=== PATIENT | female | born 1970 | race Caucasian/White ===

== ENCOUNTER → 2020-10-07 17:21 | Outpatient (BNVA) | payer BC, SELFPAY | PROVIDERS: PCP Family Medicine; Visit Provider Family Medicine | DX: E03.9 Hypothyroidism, unspecified (principal) | CPT/HCPCS: 80053; 80061; 84443; 85025 ==

== ENCOUNTER 2020-11-03 13:45 | Outpatient (CLI) | payer BC, SELFPAY ==
--- NOTE | 2020-11-03 14:30 | MM_ITS ---
WS: [id number] BILATERAL DIGITAL SCREENING MAMMOGRAPHY WITH CAD CLINICAL INFORMATION: Z12.31 - Encounter for screening mammogram for malignant neoplasm of breast HISTORY: Screening mammogram. No current complaints. COMPARISON: and TECHNIQUE: Bilateral CC and MLO views. FINDINGS: Scattered fibroglandular densities bilaterally. No suspicious focal mass, asymmetry, calcifications, or architectural distortion. No evidence of malignancy. Punctate and lucent centered calcifications. MM/[place] [address] IMPRESSION: BI-RADS: 2-Benign FOLLOW UP: 1 Year Follow-up Recommend return to annual screening mammography.
== END 2020-11-03 13:46 | disposition home or self-care (01) ==
LOC: RADSHAW 13:49
PROVIDERS: PCP Family Medicine; Visit Provider Family Medicine
DX: Z12.31 Encounter for screening mammogram for malignant neoplasm of breast (principal)
CPT/HCPCS: 77067

== ENCOUNTER → 2020-12-06 16:07 | Outpatient (BNVA) | payer BC, SELFPAY | PROVIDERS: PCP Family Medicine; Visit Provider Obstetrics & Gynecology | DX: N93.9 Abnormal uterine and vaginal bleeding, unspecified (principal); R10.2 Pelvic and perineal pain; N92.6 Irregular menstruation, unspecified | CPT/HCPCS: 83001; 84146; 84443; 84702; 88305 ==

== ENCOUNTER → 2020-12-08 14:29 | Outpatient (BNVA) | payer BC, SELFPAY | PROVIDERS: PCP Family Medicine; Visit Provider Obstetrics & Gynecology | DX: N93.9 Abnormal uterine and vaginal bleeding, unspecified (principal); N85.2 Hypertrophy of uterus; D25.1 Intramural leiomyoma of uterus | CPT/HCPCS: 76830 ==

== ENCOUNTER → 2021-01-26 16:12 | Outpatient (BNVA) | payer BC, SELFPAY | PROVIDERS: PCP Family Medicine; Visit Provider Family Medicine | DX: E03.9 Hypothyroidism, unspecified (principal) | CPT/HCPCS: 84443 ==

== ENCOUNTER → 2021-02-04 15:06 | Outpatient (BNVA) | payer BC, SELFPAY | PROVIDERS: PCP Family Medicine; Visit Provider Obstetrics & Gynecology | DX: N84.1 Polyp of cervix uteri (principal); N93.9 Abnormal uterine and vaginal bleeding, unspecified; Z20.822 Contact with and (suspected) exposure to COVID-19 | CPT/HCPCS: 87635 ==

== ENCOUNTER → 2021-02-24 16:37 | Outpatient (BNVA) | payer BC, SELFPAY | PROVIDERS: PCP Family Medicine; Visit Provider Obstetrics & Gynecology | DX: Z20.822 Contact with and (suspected) exposure to COVID-19 (principal); N93.9 Abnormal uterine and vaginal bleeding, unspecified | CPT/HCPCS: 87635 ==

== ENCOUNTER 2021-03-02 15:11 | Inpatient (IN) | payer BC, SELFPAY ==
[2021-03-01 09:12] VITALS: BMI 51.0
--- NOTE | 2021-03-01 10:01 | ANES.PREANE2 ---
Pre-Anesthetic Assessment Pre-Anesthetic Assessment: Height/Weight: Height 1.63 m Weight 134.717 kg Proposed Procedure: Operation Date: 03/02/21 12:20 Proposed Procedures p Laparoscopic Assist Vaginal Hysterectomy 04796 N93.9 N84.1(Not Applicable) - Abel Gloria MD Was Beta Jayla taken within 24 hours: N/A Was Clonidine taken within 24 hours: N/A Social: Social History: No alcohol and No tobacco Exam: Pre-Anes Outpt Exam: alert and oriented x 3 Airway: Submandibular: WNL Cervical ROM: WNL MP: 2 Additional comments: Morbid obesity History/ROS: No significant history except as noted Pulmonary: Pulmonary: None reported CV/HEM: CV/HEM: None reported : : None reported Hepatic: Hepatic: None reported GI: GI: None reported Metabolic: Metabolic: Thyroid Musc/skel: Musc/skel: None reported Neuropsych: Neuropsych: None reported Anesthetic Plan: ASA status: 2 Anesthesia: Anesthesia Evaluation and General PFSH Anesthesia PFSH: Medical History Abnormal uterine bleeding (AUB) Hypothyroidism Surgical History H/O section x2 History of weight loss surgery S/P endometrial ablation S/P tonsillectomy and adenoidectomy Family History Mother Diabetes Hypertension Lupus Uterine cancer Denies family history of Colon cancer Ovarian cancer Clotting disorder Heart disease Hyperlipidemia Breast cancer Anesthesia complication Bleeding disorder Thyroid condition Stroke Social History Smoking and tobacco status: never smoked Alcohol intake: current Alcohol intake frequency: holidays/special occasions only Alcohol type: hard liquor Female Reproductive History: Date of last menstrual period: 02/25/21 Data Anesthesia Cardiac Studies: No Data to Display
[2021-03-02] VITALS (17 sets, daily range): BP systolic 97–181; BP diastolic 64–100; PULSE 74–85; RESP 12–20; TEMP 36.4–36.5; O2SAT 91–100; BMI 51.0
[2021-03-02] MEDS: sodium chloride 0.9% 1,000 ML 30 ML IV (12:00)
[2021-03-02] MEDS: enoxaparin 30 mg/0.3 mL Syringe SUBCUT (12:25)
[2021-03-02] MEDS: sodium chloride 0.9% 500 ML IV (12:25)
[2021-03-02 13:02] LABS: Add Urine Microscopic? NO; Charge for UA Resulting for Rev
[2021-03-02 13:08] LABS: Bilirubin Urine Neg (Negative); Blood Urine Neg (Negative); Glucose Urine UA Norm (Normal); Ketones Urine Negative (Negative); Leukocyte Esterase Urine Negative (Negative); Nitrate Urine Negative (Negative); Protein Urine Neg (Negative); Urine Appearance Clear (CLEAR); Urine Color Yellow (Yellow); Urobilinogen Urine Norm (Negative); pH Urine 6 (5-7)
[2021-03-02 13:13] LABS: Basophils # 0.1 10^3/uL (0.0-0.1); Basophils % 1.3 %; Eosinophils # 0.1 10^3/uL (0.0-0.8); Eosinophils % 1.8 %; Hematocrit 44.2 % (37.0-47.0); Hemoglobin 14.7 g/dL (11.5-15.3); Lymphocytes # 2.1 10^3/uL (0.8-4.8); Lymphocytes % 31.4 %; Mean Corpuscular HGB Conc 33.3 g/dL (30.0-36.0); Mean Corpuscular Hemoglobin 30.1 pg (28.0-34.0); Mean Corpuscular Volume 90.6 fl (81-99); Mean Platelet Volume 11.2 fL (7.4-10.4); Monocytes # 0.5 10^3/uL (0.2-0.9); Monocytes % 7.5 %; Neutrophils # 3.95 10^3/uL (1.8-7.7); Neutrophils % 57.9 %; Nucleated Red Blood Cells % 0 %; Platelet Count 274 10^3/cmm (130-400); Red Blood Count 4.88 10^6/uL (4.1-5.3); Red Cell Distribution Width 13.3 % (12.1-15.1); White Blood Count 6.8 10^3/uL (4.0-10.0)
[2021-03-02 13:16] LABS: OR HCG Qualitative Urine Negative (Negative)
[2021-03-02 13:34] LABS: Alanine Aminotransferase 17 U/L (0-33); Albumin Level 4.2 g/dL (3.5-5.2); Alkaline Phosphatase 95 IU/L (35-105); Anion Gap 12.8 (5-19); Aspartate Amino Transferase 24 U/L (0-32); Blood Urea Nitrogen 9 mg/dL (6-20); Calcium 9.3 mg/dL (8.5-10.5); Carbon Dioxide 27 mmol/L (22-29); Chloride 101 mmol/L (98-107); Globulin 3.3 g/dL (1.3-4.6); Glomerular Filtration Rate 129.6 mL/min (90-130); Glucose 116 mg/dL (65-115); Osmolality Calculated 284 mOsm/kg (285-295); Potassium 3.8 mmol/L (3.5-5.1); Sodium 137 mmol/L (136-145); Total Bilirubin 0.5 mg/dL (0.15-1.2); Total Protein 7.5 g/dL (6.6-8.7)
--- NOTE | 2021-03-02 14:25 | W.PM.OPSUD ---
Surgery/Procedure H&P Update DATE OF PROCEDURE: March 02, 2021 DATE H&P PERFORMED: 03/01/21 H&P UPDATE INFORMATION: I have reviewed H&P completed within last 30 days, I have examined patient prior to procedure and No changes to prior documentation PREOP DIAGNOSIS: Abnormal uterine bleeding, endocervical polyp, PLANNED PROCEDURE: Operation Date: 03/02/21 13:05 Proposed Procedures p Laparoscopic Assist Vaginal Hysterectomy 79325 N93.9 N84.1(Not Applicable) - Abel Gloria MD
--- NOTE | 2021-03-02 14:30 | P.ANESUD_ITS ---
Pre-Anesthetic Update Pre-Anesthetic Assessment: Date of Surgery/Procedure: 03/02/21 Preop Kimmy gnosis: Abnormal uterine bleeding, endocervical polyp, Proposed Procedure: Operation Date: 03/02/21 13:05 Proposed Procedures p Laparoscopic Assist Vaginal Hysterectomy 40154 N93.9 N84.1(Not Applicable) - Abel Gloria MD Any changes to Pre-Anesthetic Assessment?: No Last Intake: Intake Last Liquid Date 03/01/21 Last Liquid Time 20:00 Last Solid Date 03/01/21 Last Solid Time 20:00 Labs Last 48hrs: Laboratory Results - last 48 hr 03/02/21 03/02/21 03/02/21 12:14 12:14 12:14 WBC 6.8 RBC 4.88 Hgb 14.7 Hct 44.2 MCV 90.6 MCH 30.1 MCHC 33.3 RDW 13.3 Plt Count 274 MPV 11.2 H Neut % (Auto) 57.9 Lymph % (Auto) 31.4 [place] % (Auto) 7.5 Eos % (Auto) 1.8 Baso % (Auto) 1.3 Neut # (Auto) 3.95 Lymph # (Auto) 2.1 [place] # (Auto) 0.5 Eos # (Auto) 0.1 Baso # (Auto) 0.1 Nucleated RBC % (a uto) 0 Nucleated RBCs # 0.0 Sodium Potassium Chloride Carbon Dioxide Anion Gap BUN Creatinine GFR Calculation Glucose Calculated Osmolal ity Calcium Total Bilirubin AST ALT Alkaline Phosphata se Total Protein Albumin Globulin Urine Color Yellow Urine Appearance Clear Urine pH 6 Ur Specific Gravit y 1.020 Urine Protein Neg Urine Glucose (UA) Norm Urine Ketones Negative Urine Blood Neg Urine Nitrate Negative Urine Bilirubin Neg Urine Urobilinogen Norm Ur Leukocyte Gisselle ase Negative Urine HCG, Qual Negative Blood Type Rho(D) Type Antibody Screen 03/02/21 03/02/21 12:14 12:14 WBC RBC Hgb Hct MCV MCH MCHC RDW Plt Count MPV Neut % (Auto) Lymph % (Auto) [place] % (Auto) Eos % (Auto) Baso % (Auto) Neut # (Auto) Lymph # (Auto) [place] # (Auto) Eos # (Auto) Baso # (Auto) Nucleated RBC % (a uto) Nucleated RBCs # Sodium 137 Potassium 3.8 Chloride 101 Carbon Dioxide 27 Anion Gap 12.8 BUN 9 Creatinine 0.5 GFR Calculation 129.6 Glucose 116 H Calculated Osmolal ity 284 L Calcium 9.3 Total Bilirubin 0.5 AST 24 ALT 17 Alkaline Phosphata se 95 Total Protein 7.5 Albumin 4.2 Globulin 3.3 Urine Color Urine Appearance Urine pH Ur Specific Gravit y Urine Protein Urine Glucose (UA) Urine Ketones Urine Blood Urine Nitrate Urine Bilirubin Urine Urobilinogen Ur Leukocyte Gisselle ase Urine HCG, Qual Blood Type O Positive Rho(D) Type Positive Antibody Screen Negative Vitals: Temperature 97.7 F 03/02/21 11:55 Temperature Source Temporal Artery S can 03/02/21 11:55 Pulse Rate 74 03/02/21 11:55 Pulse Rhythm 03/02/21 11:50 Respiratory Rate 18 03/02/21 11:55 Blood Pressure 147/88 03/02/21 11:55 Blood Pressure Olga n 107 03/02/21 11:55 Pulse Oximetry 98 03/02/21 11:55 Oxygen Delivery Me thod 03/02/21 11:55 Exam: Pre-Anes Outpt Exam: alert, oriented x 3, clear to auscultation bilaterally and regular rate & rhythm Cardiac Studies: No Data to Display
[2021-03-02] MEDS: levofloxacin-dextrose 5 % 500 MG/100 ML PREMIX 100 MG IV (14:36)
--- NOTE | 2021-03-02 17:47 | P.OP_ITS ---
Operative Report Date of procedure: March 02, 2021 Pre-op Diagnosis: Abnormal uterine bleeding, endocervical polyp, Post-op diagnosis: same Post-op Findings: Enlarged irregular uterus adherent to anterior abdominal wall Procedure Done: Laparoscopic-assisted vaginal hysterectomy converted to open total abdominal hysterectomy Specimens removed/disposition: Uterus Surgeon: Abel Gloria MD Anesthesia: General Estimated blood loss (mL): 500 IV fluids (mL): 1,400 Urine output (mL): 500 Findings: Enlarged irregular uterus with extensive adhesions to anterior abdominal wall Condition: stable Disposition: PACU Procedure: After informed consent, the patient was taken to the operating room where general anesthesia was administered. Pre-Procedure Time-Out verifying the correct patient identity, correct procedure verified with consent, correct site and side, correct patient position, availability of correct implants and any special equipment or requirements was performed and acknowledge by the OR team. She was placed in the dorsal lithotomy position and prepped and draped in sterile fashion. The patient was examined under anesthesia and found to have a normal uterus with normal adnexa. A Garcia catheter was placed in the bladder. A weighted speculum was placed in the vagina, and the anterior lip of cervix was grasped with the single toothed tenaculum. A uterine manipulator was advanced into the endocervical. Tenaculum was removed after uterine manipulator was secured. The speculum was removed from the vagina. The attention was brought to abdomen after changing gloves. The base of the umbilicus was grasped with an Allis clamp and with 2 towel clamp bilaterally tenting up the umbilicus an intraumbilical incision was made with a scalpel. While tenting up on the abdomen, a Verres needle with sleeve was admitted into the intra-abdominal cavity. A saline drop test was performed and noted to be within normal limits. Pneumoperitoneum was attained with 4 liters of carbon dioxide. The Verres needle was removed. Then a 5 mm Optiview trocar and cannula were inserted under direct visualization without complications. Trocars were removed and the laparoscope was inserted and connected to the video camera light source. Abdominal cavity assessment show an irregular enlarged uterus distorting anatomy with severe adhesions to anterior abdominal wall and left side of the pelvis. At this time the decision was made to proceed with an open total abdominal hysterectomy. Subsequently, a Pfannenstiel incision was made and the incision was taken down to the fascia. The fascia was opened up sharply. The fascia was extended to the length of the incision using the Bach scissors. At this time, the rectus muscles were dissected from the fascia superiorly and inferiorly to the symphysis pubis. The midline rectus muscles were opened sharply and extended superiorly and inferiorly. The peritoneum was visualized, grasped, opened sharply, and extended superiorly and inferiorly towards the bladder. Extensive adhesion were lysed to separate the uterus from anterior abdominal wall. The abdominal contents were packed superiorly away from the operative site using the lap packs. At this time, the pelvic organs were noted. The inferior and superior blades were placed in place on the Tino self-retaining retractor. Bowel was packed away from the operative site. The fundus of the uterus was then grasped with a triple-tooth tenaculum and retracted out of the pelvic cavity into the abdominal site. At this point, Lorena clamps were placed in both right and left adnexal regions. Subsequently, using the ENseal cautery unit, the round ligaments were grasped, cauterized, and dissected. The bladder flap was then formed and the bladder flap was pushed away down anteriorly over the lower uterine segment, pushed away from the operative site on both the right and left sides. Subsequently, the posterior leaf of the broad ligament was opened sharply and the Enseal instrument was then placed below the level of the ovary in both the right and left side, care being taken not to damage bowel or uterus and the infundibulopelvic ligament was then grasped, cauterized, and again dissected. Further dissection of the broad ligament was carried down posteriorly towards the uterine vessels. The bladder was pushed inferiorly down towards the vagina. Subsequently, the uterine vessels were then grasped again with the Enseal machine, cauterized, and dissected. The cardinal ligaments were further grasped, dissected, and suture ligated, again with the Enseal machine. At that point, the Enseal machine instrument was stopped and straight Zeppelin clamps were used on the cardinal ligaments down towards the uterosacral ligaments. The cardinal ligaments were grasped, dissected with a scalpel and then ligated with transfixion sutures with #1 Vicr yl suture down to the uterosacral ligaments. The uterosacral ligaments were grasped, dissected, and suture ligated again with #1 Vicryl suture and transfixion sutures. At that time, the bladder had been pushed over the vagina and at this time right-angle Zeppelin clamps were placed on the vagina at the level of the cervix, and using the Larry scissors, the cervix was dissected away from the vagina. At this time, the vaginal cuff was then closed using interrupted sutures of #1 Vicryl suture from the midline to each lateral corner. After the good hemostasis had been achieved in the vaginal cuff, both the right and left adnexa was visualized and no more bleeding was noted. The cuff was intact with no bleeding noted. The bladder was visualized and no bleeding was noted. Seprafilm was then placed over the vaginal cuff. The Lutts self- retaining retractor was removed as well as the anterior and inferior blades. The lap packs were removed, and at this time, general closure of the abdomen was carried out. The peritoneum was closed with a 2-0 Vicryl suture and continuous running suture. The fascia was closed using a #1 Vicryl suture from each corner to the midline. Subcutaneous tissue was cauterized. No bleeding was noted. The subcutaneous tissue was then reapproximated using plain sutures and interrupted sutures, and the skin was closed using the Insorbs subcuticular absorvable st aples. The patient tolerated the procedure well and was transferred to the recovery room in excellent condition. The patient returned to the floor for recovery.
[2021-03-02] MEDS: ondansetron 2 mg/ML SDV 2 mL 4 MG IVP (18:09)
[2021-03-02] MEDS: fentaNYL 50 mcg/mL INJ 2mL IVP (18:11)
--- NOTE | 2021-03-02 18:37 | SUR.PHASEI ---
Pt resting quietly, dozes off to sleep easily, but arouses to verbal command. VSS. States pain is better following the Fentanyl. Denies further N/V. Garcia patent, draining clear, blue-tinged urine. Dressing to lower transverse abdomen dry and intact. Report called to Heidy in OB.
--- NOTE | 2021-03-02 19:00 | ANE.PACU2 ---
Inpatient post-anesthesia follow up: Airway intact: Yes Vital signs: Temperature 98.0 F Pulse Rate 96 Respiratory Rate 18 Blood Pressure 134/83 Pulse Oximetry 99 Oxygen Delivery Me thod Room Air Oxygen Flow Rate 2 Fraction of Inspir ed Oxygen Hydration adequate: Yes Nausea and vomiting: No Pain level: 3 Mental status: Baseline
[2021-03-02] MEDS: ketorolac 30 mg/mL INJ IVP (20:37)
[2021-03-02] MEDS: HYDROcodone-acetaminophen 5-325 mg Tablet PO (21:13)
[2021-03-02] MEDS: dextrose 5%-lactated ringers 1,000 ML 125 ML IV (21:21)
[2021-03-03 00:04] VITALS: BP 152/89; PULSE 78; TEMP 36.7
[2021-03-03 02:04] VITALS: BP 147/86; PULSE 82; RESP 18
[2021-03-03] MEDS: ketorolac 30 mg/mL INJ IVP (02:44)
[2021-03-03] MEDS: HYDROcodone-acetaminophen 5-325 mg Tablet PO ×2 (02:45→20:26)
[2021-03-03 03:59] VITALS: BP 134/83; PULSE 96; RESP 18; O2SAT 99
[2021-03-03] MEDS: dextrose 5%-lactated ringers 1,000 ML 125 ML IV (05:01)
[2021-03-03 05:57] LABS: Hematocrit 37.4 % (37.0-47.0); Hemoglobin 12.4 g/dL (11.5-15.3); Mean Corpuscular HGB Conc 33.2 g/dL (30.0-36.0); Mean Corpuscular Hemoglobin 30.2 pg (28.0-34.0); Mean Platelet Volume 10.8 fL (7.4-10.4); Platelet Count 252 10^3/cmm (130-400); Red Blood Count 4.11 10^6/uL (4.1-5.3); Red Cell Distribution Width 13.2 % (12.1-15.1); White Blood Count 14.7 10^3/uL (4.0-10.0)
--- NOTE | 2021-03-03 08:42 | PM.PN ---
Subjective Subjective: Interval history: Mrs. Newsome post LAVH converted to abdominal hysterectomy day 1. Referred pain under control. Deny nausea and tolerating diet. Referred pain scale 2/10. Vitals/I&O/Wt Last Vital Signs Temp 98.0 F 03/03/21 00:04 Pulse 96 03/03/21 03:59 Resp 18 03/03/21 03:59 BP 134/83 03/03/21 03:59 Pulse Ox 99 03/03/21 03:59 03/02/21 03/03/21 03/03/21 22:59 06:59 14:59 Intake Total 2500 / 3000 958.333 / 3958.333 312.5 / 312.5 Output Total 2650 / 2650 850 / 3500 Balance -150 / 350 108.333 / 458.333 312.5 / 312.5 Weight last 48 hrs Weight 134.717 kg Weight 134.717 kg Weight 134.717 kg Physical Exam Narrative: EXAM NARRATIVE: GA: Alert and oriented ?3. HEENT: WNL. Heart: Regular rate and rhythm. Lungs: Clear to auscultation bilaterally. Abdomen: Bowel sounds present, nontender, minimal tenderness, incision clean and dry, no redness, pain or edema. SLEEVE SETTER SAFETY STITCH: No bleeding. Extremities: No edema, no cyanosis, no calves pain. Urinary Catheter Management^: Garcia: Cath Placed During This Visit: yes, but has since been removed by the nurse Reason for Continuing Indwelling Catheter: Decision to DC Catheter Urinary Catheter Date of Insertion: 03/02/21 Urinary Catheter Time of Insertion: 15:05 Date Urinary Catheter Removed: 03/03/21 Time Urinary Catheter Discontinued: 05:20 Data : 03/03/21 04:20 03/02/21 12:14 A&P Assessment and plan (1) Status post abdominal hysterectomy: Mrs. Newsome 50-year-old female status post total abdominal hysterectomy and lysis of adhesions postoperative day 1. She is afebrile and hemodynamically stable. Tolerating diet well. Ambulating without difficulty. Status: Acute Attestations Medical Necessity Statement*: In my professional opinion per admitting diagnosis. Coding Level of Care Code Acute Hunter Skin Diver for g Fwd Diagnoses Status post abdominal hysterectomy Z90.710
[2021-03-03] MEDS: ibuprofen 800 mg tablet PO ×2 (08:48→16:23)
[2021-03-03] MEDS: docusate sodium 100 mg Capsule PO (08:48)
[2021-03-03] MEDS: thyroid 60 mg Tablet PO (08:49)
[2021-03-03 08:50] VITALS: BP 108/61; PULSE 81; RESP 16; TEMP 36.7
[2021-03-03 16:15] VITALS: BP 121/67; PULSE 81; RESP 16; TEMP 36.7
[2021-03-03 22:00] VITALS: BP 109/70; PULSE 59; RESP 16; TEMP 37.2
[2021-03-04 04:00] VITALS: BP 107/67; PULSE 53; RESP 16
[2021-03-04] MEDS: ibuprofen 800 mg tablet PO ×2 (04:05→11:53)
[2021-03-04] MEDS: HYDROcodone-acetaminophen 5-325 mg Tablet PO (07:34)
[2021-03-04] MEDS: thyroid 60 mg Tablet PO (09:42)
[2021-03-04 10:36] VITALS: BP 108/68; PULSE 56; RESP 16; TEMP 37; O2SAT 96
--- NOTE | 2021-03-04 13:22 | P.DS_ITS ---
Discharge Providers DIRECTOR PROFESSIONAL SERVICES Date of Admission: 03/02/21 15:11 Date of Discharge: 03/04/21 Attending Provider at Admission: Abel Gloria MD Attending Provider at Discharge: Abel Gloria MD Primary Care Provider: Belem Awad MD Diagnoses at Discharge Discharge Diagnosis (1) Status post abdominal hysterectomy: Status: Acute Reason for Visit Reason for Visit: Abnormal uterine bleeding, endocervical polyp Hospital Course Hospital Course Mrs. Ferrer 50-year-old female with a history of abnormal uterine bleeding endocervical endometrial polyp. Admitted for planned laparoscopic-assisted vaginal hysterectomy. Procedure was started as planned but it was converted to an open total abdominal hysterectomy due to uterine size and multiple dense adhesions from previous surgery. Postop observation was uneventful. Tolerating diet well. Ambulating without difficulty. Urine output within normal limits. Had a Bowel movement. She is postoperative day 2 afebrile and hemodynamically stable. Physical Exam Narrative: EXAM NARRATIVE: GA: Alert and oriented ?3. HEENT: WNL. Heart: Regular rate and rhythm. Lungs: Clear to auscultation bilaterally. Abdomen: Bowel sounds present, nontender, minimal tenderness, incision clean and dry, no redness, pain or edema. CHIEF OF HOSPITAL MEDICINE: No bleeding. Extremities: No edema, no cyanosis, no calves pain. Urinary Catheter Management^: Garcia: Cath Placed During This Visit: yes, but has since been removed by the nurse Reason for Continuing Indwelling Catheter: Decision to DC Catheter Urinary Catheter Date of Insertion: 03/02/21 Urinary Catheter Time of Insertion: 15:05 Date Urinary Catheter Removed: 03/03/21 Time Urinary Catheter Discontinued: 05:20 Discharge Data Data Completed and Pending: Pending at discharge Category Date Time Status ES surgery / GI i mages Routine Exams 03/02/21 14:48 Taken Pathology: Surgic al [PTH] Routine Pth 03/02/21 17:20 Received Vitals: Last Vital Signs Temp 98.6 F 03/04/21 10:36 Pulse 56 L 03/04/21 10:36 Resp 16 03/04/21 10:36 BP 108/68 03/04/21 10:36 Pulse Ox 96 03/04/21 10:36 Discharge Plan Discharge Patient Disposition: Home Condition: Stable Prescriptions: New ibuprofen 800 mg tablet 800 mg PO TID PRN (Reason: pain) Qty: 60 RF: 0 hydrocodone-acetaminophen 5-325 mg tablet 1 tab PO Q4H PRN (Reason: pain) Qty: 30 RF: 0 Colace 100 mg capsule 100 mg PO BID Qty: 60 RF: 0 acetaminophen 325 mg capsule 325 mg PO Q4H PRN (Reason: fever or pain) Qty: 60 RF: 0 Continued thyroid (pork) [[place] Thyroid] 60 mg tablet 60 mg PO DAILY Qty: 90 RF: 0 triamterene-hydrochlorothiazid 37.5-25 mg capsule 1 cap PO DAILY RF: 0 Discharge Orders: Discharge Order (Routine); Ordered 03/04/21 Ordered By: Abel Gloria Referrals: Abel Gloria MD [Physician] - 03/18/21 8:00 am (Your 2 week post-op appointment is scheduled for 03/18/21 @8:00. Your 6 week post-op appointment is scheduled for 04/15/21 @3:30. ) Discharge Diet: Usual diet Discharge Activity: Increase activity as tolerated Patient Instructions: Abdominal Hysterectomy (DC), OB Abdominal Surgery - [facility], OB Discharge Report, OB Food/Drug Interaction Guide, Opioid Safety Activity Restrictions/Additional Instructions: 1. Please call [facility] on next working day to make your post-operative appointment in 2 weeks. 2. Please stay home until you come back to the clinic on first post-operative check up. 3. Please follow instructions on your medications CAREFULLY. 4. If you have abdominal incision, do not cover it unless dressing is necessary because of drainage. OK to shower, but avoid bath. Leave steri-strips until they fall off. If they are still on one week after surgery, you may remove them. 5. If you had vaginal surgery or vaginal repair, Dr. Gloria may instruct you to take SITZ bath. 6. Yellow, blood tinged odorous vaginal discharge is usually normal after hysterectomy or vaginal surgeries. 7. No sexual intercourse, tampons, or douches until you are completely released from the post-operative care. 8. Avoid constipation by eating right and maybe using some Metamucil or Milk of Magnesia. 9. All prescription refills are given during the working hours. Please do no wait till it runs out. Call the clinic at [phone] before your medication runs out. The clinic will get in touch with your doctor to prescribe medications if necessary. 10. Please remain within 40 mile radius from our hospital because emergencies do happen now and then during the post-operative period. 11. If you have stairs at home, take one step at a time slowly and minimize the number of trips. It helps to stay in one floor for the next few days. No lifting except what you can lift by one hand until you are released from the post-operative care. 12. Driving is discouraged until you are well healed. It may be 3-4 weeks before you feel strong enough to drive. You should be able to turn and look through the rear window without pain and you should be able to push the brake pedal very hard without pain before you drive. No fast rules, but SAFETY should be your primary concern. DO NOT drive if you are on sedating medications such as narcotics. 13. Call the clinic (during working hours) to make urgent appointment or go to the Emergency room, if any of the following occurs: i. Vaginal bleeding becomes heavy, more than a period. ii. Incision becomes red and sore, or drains pus. iii. Your temperature is over 100.4 or you have chill. iv. IV site becomes red and swollen (a little ``knot?? is usually OK) v. Persistent nausea and vomiting vi. Persistent constipation or diarrhea vii. Rash or allergic reaction to medications. Discharge Attestations DIRECTOR PROFESSIONAL SERVICES Time Spent in Discharge Care*: greater than 30 min Coding Level of Care Code Acute Bessemer Converter Operator for Osmar Pal Diagnoses Status post abdominal hysterectomy Z90.710
[2021-03-04 14:00] VITALS: BP 126/78; PULSE 61; RESP 16; O2SAT 97
== END 2021-03-04 14:05 | disposition home or self-care (01) | DRG 743 ==
LOC: OBGYN 15:12
PROVIDERS: Admitting Provider Obstetrics & Gynecology; PCP Family Medicine; Visit Provider Obstetrics & Gynecology
PROC: 0UT9FZZ Resection of Uterus, Via Natural or Artificial Opening With Percutaneous Endoscopic Assistance (ICD-10-PCS; principal; 2021-03-02 13:05)
PROC: 0UT90ZZ Resection of Uterus, Open Approach (ICD-10-PCS; CPT 58150; 2021-03-02 13:05)
DX: N84.1 Polyp of cervix uteri (principal); N93.9 Abnormal uterine and vaginal bleeding, unspecified; N73.6 Female pelvic peritoneal adhesions (postinfective)
CPT/HCPCS: 36415; 80053; 81003; 81025; 84703; 85025; 85027; 86850; 86900; 88307; 96365; C9290; J1100; J1170; J1650; J1885; J1956; J2405; J2704; J2710; J3010; J3370; J3490; J7030; J7040; Q9968

== ENCOUNTER → 2021-05-24 10:32 | Outpatient (BNVA) | payer BC, SELFPAY | PROVIDERS: PCP Family Medicine; Visit Provider Family Medicine | DX: E03.9 Hypothyroidism, unspecified (principal) | CPT/HCPCS: 84443 ==

== ENCOUNTER → 2022-05-04 17:17 | Outpatient (BNVA) | payer BC, SELFPAY | PROVIDERS: PCP Family Medicine; Visit Provider Family Medicine | DX: Z12.31 Encounter for screening mammogram for malignant neoplasm of breast (principal); R30.0 Dysuria; B37.9 Candidiasis, unspecified; E03.9 Hypothyroidism, unspecified | CPT/HCPCS: 80053; 80061; 84443; 85025 ==

== ENCOUNTER 2022-05-29 10:27 | Outpatient (CLI) | payer BC, SELFPAY ==
--- NOTE | 2022-05-29 10:31 | MM_ITS ---
WS: [id number] BILATERAL SCREENING DIGITAL TOMOSYNTHESIS MAMMOGRAM WITH CAD HISTORY: Z12.31 - Encounter for screening mammogram for malignancy. COMPARISON: 11/03/2020, 07/01/2014 Bilateral CC and MLO views with tomosynthesis and synthetic mammography submitted. Computer aided det ection analyzed. Breast composition: There are scattered areas of fibroglandular density. No suspicious masses, microc alcifications or architectural distortion. Scattered calcifications in each breast. MM/[place] [id number] IMPRESSION: BI-RADS: 2-Benign FOLLOW UP: 1 Year Follow-up
== END 2022-05-29 10:28 | disposition home or self-care (01) ==
LOC: RAD 10:27
PROVIDERS: PCP Family Medicine; Visit Provider Family Medicine
DX: Z12.31 Encounter for screening mammogram for malignant neoplasm of breast (principal)
CPT/HCPCS: 77063; 77067

== ENCOUNTER → 2022-06-15 09:24 | Outpatient (BNVA) | payer BC, SELFPAY | PROVIDERS: PCP Family Medicine; Visit Provider Family Medicine | DX: R73.09 Other abnormal glucose (principal) | CPT/HCPCS: 83036 ==

== ENCOUNTER → 2022-09-25 16:45 | Outpatient (BNVA) | payer BC, SELFPAY | PROVIDERS: PCP Family Medicine; Visit Provider Family Medicine | DX: E03.9 Hypothyroidism, unspecified (principal); E11.9 Type 2 diabetes mellitus without complications | CPT/HCPCS: 80053; 83036; 84443 ==

== ENCOUNTER → 2023-03-07 09:12 | Outpatient (BNVA) | payer BC, SELFPAY | PROVIDERS: PCP Family Medicine; Visit Provider Family Medicine | DX: E11.9 Type 2 diabetes mellitus without complications (principal); E03.9 Hypothyroidism, unspecified | CPT/HCPCS: 80053; 80061; 83036; 84443; 85025 ==

== ENCOUNTER → 2023-03-21 10:01 | Outpatient (BNVA) | payer BC, SELFPAY | PROVIDERS: PCP Family Medicine; Visit Provider Family Medicine | DX: R10.9 Unspecified abdominal pain (principal); K29.70 Gastritis, unspecified, without bleeding | CPT/HCPCS: 85025 ==

== ENCOUNTER 2023-04-13 06:08 | Outpatient (CLI) | payer BC, SELFPAY ==
--- NOTE | 2023-04-13 06:30 | US_ITS ---
WS: [id number] Complete ABDOMINAL ULTRASOUND HISTORY: R10.13 - Epigastric pain COMPARISON: None available. Liver: 15.8 cm in length. Normal size liver with marked hepatic steatosis. No mass identified. Portal Vein: Normal hepatopetal flow with monophasic waveform. Gallbladder: Large amount of shadowing from the region of the gallbladder fossa. Stone filled gallbla dder. CBD: 0.4 cm Pancreas: Completely obscured by bowel gas. Right kidney: 11.7 cm x 6.2 x 6.3 cm. Cortex:1.7 cm. Normal size and echogenicity. No hydronephrosis or mass. Left kidney: 11.9 cm x 5.6 cm x 5.9 cm. Cortex: 1.4 cm. Normal size and echogenicity. No hydronephrosis or mass. Spleen: Normal. Aorta and IVC: Unremarkable abdominal aorta and IVC. Impression: 1. Cholelithiasis. Stone filled gallbladder. 2. Normal size liver with moderate to severe hepatic steatosis. 3. No hydronephrosis. 4. Normal size spleen.
== END 2023-04-13 06:09 | disposition home or self-care (01) ==
PROVIDERS: PCP Family Medicine; Visit Provider Family Medicine
DX: R10.13 Epigastric pain (principal); K80.20 Calculus of gallbladder without cholecystitis without obstruction
CPT/HCPCS: 76700

== ENCOUNTER 2023-05-14 05:24 | Day surgery (SDC) | payer BC, SELFPAY ==
[2023-05-14] VITALS (14 sets, daily range): BP systolic 125–169; BP diastolic 65–102; PULSE 56–75; RESP 14–19; TEMP 36.1; O2SAT 90–100; BMI 47.2
[2023-05-14] MEDS: sodium chloride 0.9% 1,000 ML 30 ML IV (06:23)
[2023-05-14] MEDS: vancomycin 1,500 MG/300 ML PIGGYBACK 200 MG IV (06:26)
--- NOTE | 2023-05-14 06:49 | W.PM.OPSUD ---
Surgery/Procedure H&P Update DATE OF PROCEDURE: May 14, 2023 DATE H&P PERFORMED: 05/02/23 H&P UPDATE INFORMATION: I have reviewed H&P completed within last 30 days, I have examined patient prior to procedure and No changes to prior documentation PLANNED PROCEDURE: Operation Date: 05/14/23 07:00 Proposed Procedures p 42083 lap cristina K80.20(Not Applicable) - Joao Mina DO
[2023-05-14 06:57] LABS: Blood Urea Nitrogen 12 mg/dL (6-20); Calcium 9.2 mg/dL (8.5-10.5); Carbon Dioxide 27 mmol/L (22-29); Chloride 104 mmol/L (98-107); Glomerular Filtration Rate 103.8 mL/min (90-130); Glucose 132 mg/dL (65-115); Osmolality Calculated 290 mOsm/kg (285-295); Sodium 139 mmol/L (136-145)
--- NOTE | 2023-05-14 07:07 | ANES.PREANE2 ---
Pre-Anesthetic Assessment Height/Weight: Height 1.63 m Weight 124.738 kg Pulse Resp BP Pulse Ox O2 Del Method 68 18 125/96 97 Room Air 05/14/23 06:00 05/14/23 06:00 05/14/23 06:00 05/14/23 06:00 05/14/23 06:08 Operation Date: 05/14/23 07:00 Proposed Procedures p 78291 lap cristina K80.20(Not Applicable) - Joao Mina DO Familial anesthetic complications: None Was Beta Jayla taken within 24 hours: N/A Was Clonidine taken within 24 hours: N/A Last intake: Intake Last Liquid Date 05/13/23 Last Liquid Time 23:30 Last Solid Date 05/13/23 Last Solid Time 19:00 Social No alcohol and No tobacco Exam alert, oriented x 3, clear to auscultation bilaterally and regular rate & rhythm Airway Mallampati: Class IV Dentition: chipped (cracked back vamshi) and full GI Gastroesophageal Reflux Disease Metabolic Diabetes Mellitus, Morbid Obesity and Thyroid Disease Anesthetic Plan ASA status: 3 Anesthesia: General Risk of > 500 ml blood loss (7ml/kg in children): No Medications/Allergies Home Medications Medication Instructions Recorded Confirmed Last Taken Type acetaminophen 325 mg capsule 325 mg PO Q4H PRN fever or pain 03/04/21 05/11/23 Unknown Rx #60 caps ibuprofen 800 mg tablet 800 mg PO TID PRN pain #60 tabs 03/04/21 05/11/23 04/13/23 Rx blood sugar diagnostic (Blood #50 ea 07/21/22 05/02/23 Unknown Rx Glucose Test strips) blood-glucose meter (Blood Glucose #1 ea 07/21/22 05/02/23 Unknown Rx Monitoring kit) blood-glucose meter (OneTouch #1 ea 01/19/23 05/02/23 Unknown Rx Ultra2 Meter) empagliflozin 25 mg tablet 25 mg PO DAILY #90 tabs 03/12/23 05/11/23 05/11/23 Rx (Jardiance) fexofenadine 60 mg-pseudoephedrine 1 tab PO QDAY PRN allergy symptoms 03/12/23 05/11/23 04/13/23 Rx ER 120 mg tablet,ext.release,12 hr #30 tabs (Lynnette-D 12 Hour) semaglutide 0.25 mg or 0.5 mg (2 0.5 mg (0.736 mL) SUBCUT .weekly 03/12/23 05/11/23 05/04/23 Rx mg/3 mL) subcutaneous pen injector #3 mL (Ozempic) thyroid (pork) 180 mg tablet 180 mg PO DAILY #90 tabs 03/12/23 05/11/23 05/13/23 Rx lansoprazole 30 mg capsule,delayed 30 mg PO BID #60 caps 04/10/23 05/11/23 05/11/23 Rx release (Prevacid) lancets 33 gauge (OneTouch Delica #100 ea 04/16/23 05/02/23 Unknown Rx Plus Lancet) triamterene 37.5 1 cap PO DAILY 05/11/23 05/11/23 05/11/23 History mg-hydrochlorothiazide 25 mg capsule Allergies Allergy/AdvReac Type Severity Reaction Status Date / Time gluten Allergy ADR-Diarrhe Verified 05/02/23 13:41 a soy Allergy ADR-Diarrhe Verified 05/02/23 13:41 a Penicillins AdvReac anaphylacti Verified 05/02/23 13:41 c Current Medications Generic Name Dose Route Start Last Admin Trade Name Freq PRN Reason Stop Dose Admin Vancomycin/PEG/NADA/Lysine/Water 1,500 mg in 300 mls @ 200 mls/hr 05/14/23 05:39 05/14/23 06:26 Vancocin IV 05/14/23 07:08 200 mls/hr [employer] Administration Protocol Sodium Chloride 1,000 mls @ 30 mls/hr 05/14/23 05:45 05/14/23 06:23 Sodium Chloride 0.9% IV 05/15/23 05:44 30 mls/hr .Q24H ADELINE Administration PFSH Anesthesia Medical History (Updated 05/02/23 @ 14:57 by Joao Mina DO) Abnormal uterine bleeding (AUB) Hypothyroidism Surgical History (Updated 05/02/23 @ 14:57 by Joao Mina DO) H/O section x2 History of hysterectomy History of weight loss surgery S/P endometrial ablation S/P tonsillectomy and adenoidectomy Family History Mother Diabetes Hypertension Lupus Uterine cancer Denies family history of Colon cancer Ovarian cancer Clotting disorder Heart disease Hyperlipidemia Breast cancer Anesthesia complication Bleeding disorder Thyroid disease Stroke Social History Smoking and tobacco/nicotine status: never used tobacco/nicotine Alcohol intake: current Alcohol intake frequency: holidays/special occasions only Alcohol type: hard liquor Substance/Drug Use: never Data Anesthesia 05/14/23 06:12 BMP 05/14/23 06:12 Sodium 139 Potassium 4.0 Chloride 104 Carbon Dioxide 27 BUN 12 Creatinine 0.6 Glucose 132 H Calcium 9.2 Cardiac Studies: No Data to Display
[2023-05-14] MEDS: lidocaine-epi 2% 20 mL INJ INJECTION (07:22)
--- NOTE | 2023-05-14 08:09 | P.OP_ITS ---
Operative Report Date of procedure: May 14, 2023 Pre-op diagnosis: Symptomatic cholelithiasis Post-op diagnosis: same Procedure done: Laparoscopic cholecystectomy Surgeon: Joao Mina DO Brief History: This very pleasant 53-year-old female who presents my office with symptomatic cholelithiasis. Laparoscopic cholecystectomy was indicated. The risk benefits were explained and documented. Procedure: Preoperative diagnosis: Symptomatic cholelithiasis Postoperative diagnosis: Same Procedure performed: Laparoscopic cholecystectomy Surgeon: Dr. Joao Mina DO Estimated blood loss: 5 mL Specimens: Gallbladder to pathology Complications: None apparent Description of procedure: Patient was wheeled into the operative room and placed on the OR table in a supine position. Abdomen was inspected prepped and draped in usual sterile fashion. Time-out was performed and all present were in agreement. A 15 blade scalp was used to make a stab incision in the left upper quadrant and intra- abdominal insufflation was achieved using a Veress needle. After localizing the tissue incisions were made and a 5 millimeter trocar was placed into the umbilicus as well as 2 in the right upper quadrant. A 12 millimeter trocar was placed in the epigastrium. Gallbladder was grasped and elevated. The triangle of Calot was carefully dissected using blunt dissection and electrocautery until the triangle of Calot clearly identified. The cystic duct was clipped proximally and double clipped distally. The duct was then ligated proximally. The cystic artery was doubly clipped and ligated. The gallbladder was then removed from the liver bed using electrocautery. The gallbladder was removed from the abdomen using an Endo-Catch bag through the epigastric incision. The liver bed was inspected and no bleeding was seen. The abdomen was irrigated and suctioned. All ports removed. Skin was washed and dried. Incisions were closed with 4-0 Monocryl in a subcuticular interrupted fashion. Skin glue was applied. Patient tolerated the procedure well.
[2023-05-14] MEDS: fentaNYL 50 mcg/mL INJ 2mL IVP (08:34)
[2023-05-14] MEDS: ondansetron 2 mg/ML SDV 2 mL 4 MG IVP (08:39)
[2023-05-14] MEDS: HYDROcodone-acetaminophen 10-325 mg Tablet 1 TAB PO (09:26)
--- NOTE | 2023-05-14 09:50 | ANE.PACU2 ---
Inpatient post-anesthesia follow up: Airway intact: Yes Vital signs: Temperature 97 F Pulse Rate 60 Respiratory Rate 18 Blood Pressure 148/78 Pulse Oximetry 97 Oxygen Delivery Me thod Room Air Oxygen Flow Rate 1 Fraction of Inspir ed Oxygen Hydration adequate: Yes Nausea and vomiting: No Pain level: 1 Mental status: Baseline
[2023-05-16 09:52] LABS: Glucose Point of Care 113 mg/dL (70-110)
== END 2023-05-14 09:51 | disposition home or self-care (01) ==
PROVIDERS: Anesthesiology; PCP Family Medicine; Visit Provider Surgery
PROC: 0FT44ZZ Resection of Gallbladder, Percutaneous Endoscopic Approach (ICD-10-PCS; CPT 47562; principal; 2023-05-14 07:00)
DX: K80.10 Calculus of gallbladder with chronic cholecystitis without obstruction (principal); K21.9 Gastro-esophageal reflux disease without esophagitis; E66.01 Morbid (severe) obesity due to excess calories; Z68.42 Body mass index [BMI] 45.0-49.9, adult; E03.9 Hypothyroidism, unspecified
CPT/HCPCS: 47562; 36415; 36416; 80048; 82962; 88304; J0330; J1100; J2250; J2405; J2704; J2710; J3010; J3370; J3490; J7030

== ENCOUNTER → 2023-09-25 10:47 | Outpatient (BNVA) | payer BC, SELFPAY | PROVIDERS: PCP Family Medicine; Visit Provider Family Medicine | DX: K80.20 Calculus of gallbladder without cholecystitis without obstruction (principal); E11.9 Type 2 diabetes mellitus without complications | CPT/HCPCS: 80053; 80061; 83036; 84443; 85025 ==

== ENCOUNTER → 2023-10-19 10:22 | Outpatient (BNVA) | payer BC, SELFPAY | PROVIDERS: PCP Family Medicine; Visit Provider Nurse Practitioner Family | DX: R07.0 Pain in throat (principal) | CPT/HCPCS: 87071; 87880 ==

== ENCOUNTER → 2023-11-21 11:41 | Outpatient (BNVA) | payer BC, SELFPAY | PROVIDERS: PCP Family Medicine; Visit Provider Family Medicine | DX: E03.9 Hypothyroidism, unspecified (principal) | CPT/HCPCS: 84443 ==